=== PATIENT | female | born 1980 | race Two or more races ===

== ENCOUNTER 2019-01-13 21:35 | Emergency (ER) | payer SELFPAY ==
[~2019-01-13] VITALS: Ht 154.9 cm; Wt 44.0 kg
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
[2019-01-13 21:54] VITALS: BP 121/73
[2019-01-13] MEDS ORDERED: IBUPROFEN600 MG ORAL (22:11)
[2019-01-13 22:21] VITALS: BP 121/73
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
== END 2019-01-13 22:15 | disposition home or self-care (01) ==
LOC: EDBD 21:35 → EMR 21:45
DX: S63.634A Sprain of interphalangeal joint of right ring finger, initial encounter (principal); S63.636A Sprain of interphalangeal joint of right little finger, initial encounter; S39.012A Strain of muscle, fascia and tendon of lower back, initial encounter; V43.52XA Car driver injured in collision with other type car in traffic accident, initial encounter; Y92.410 Unspecified street and highway as the place of occurrence of the external cause
CPT/HCPCS: 29125; 99283